=== PATIENT | female | born 1960 | race Caucasian/White ===

== ENCOUNTER 2017-01-24 21:47 | Observation (INO) | payer OTHER ==
[~2017-01-24] VITALS: Ht 157.5 cm; Wt 58.5 kg
[~2017-01-24 21:47] MED LIST: BIOTCAP PO; CETI10 PO; CHOL1CAP14 PO; CINN500C7 PO; CREON24 PO; EVENCAP2 PO; FOLI400T30 PO; GLUCTAB PO; LUTE6TAB PO; MIRA33502 PO; MULT1TAB PO; PREC50TA PO; SM A81CH CHEW; THYR15 PO; VITA-83 PO; VITA10002 PO; VITATAB11 PO; [UNRECOGNIZED DRUG - OTHER] PO
[2017-01-24 21:56] VITALS: BP 200/92; PULSE 89; RESP 20; TEMP 98.4; O2SAT 98
[2017-01-24] MEDS ORDERED: SODIUM CHLORIDE 0.9% FLUSH 10 ML FLUSH IVF PRN (23:15)
[2017-01-24 23:19] VITALS: BP 179/89; PULSE 78; RESP 16; O2SAT 95
--- NOTE | 2017-01-24 23:36 | RADRPT ---
EXAM DATE/TIME: 01/24/2017 23:15 [place] COMPARISON: No previous studies available for comparison. INDICATIONS : Chest pain. MEDICAL HISTORY : None. SURGICAL HISTORY : None. ENCOUNTER: Initial ACUITY: 1 day PAIN SCORE: 4/10 LOCATION: Bilateral chest FINDINGS: Trace consolidation seen left lung base, probably atelectasis. Right lung is clear. No effusion or pn eumothorax. Normal heart size. CONCLUSION: Very mild left base consolidation. Yogi Wilson MD on January 24, 2017 at 23:34 Board Certified Radiologist. This report was verified electronically.
[2017-01-24 23:42] LABS: AUTOMATED NEUTROPHIL # 6.7 TH/MM3 (1.8-7.7); BASOPHIL % 0.4 % (0.0-2.0); EOSINOPHIL # 0.1 TH/MM3 (0-0.4); EOSINOPHIL % 0.5 % (0.0-4.0); HEMATOCRIT 41.6 % (35.0-46.0); HEMO FLAGS DIFF FINAL; LYMPH % 22.3 % (9.0-44.0); LYMPHOCYTE # 2.3 TH/MM3 (1.0-4.8); MEAN CELL VOLUME 91.6 FL (80.0-100.0); MEAN CORPUSCULAR HEMOGLOBIN 30.2 PG (27.0-34.0); MONO % 11.6 % (0.0-8.0); NEUT % 65.2 % (16.0-70.0); PLATELET COUNT 254 TH/MM3 (150-450); RED BLOOD COUNT 4.55 MIL/MM3 (4.00-5.30); RED CELL DISTRIBUTION WIDTH 12.6 % (11.6-17.2); WHITE BLOOD COUNT 10.3 TH/MM3 (4.0-11.0)
[2017-01-24 23:50] LABS: CHLORIDE 104 MEQ/L (98-107); POTASSIUM 3.4 MEQ/L (3.5-5.1); SODIUM (NA) 138 MEQ/L (136-145)
[2017-01-24 23:54] LABS: ANION GAP 7 MEQ/L (5-15); BICARBONATE 27.3 MEQ/L (21.0-32.0); BLOOD UREA NITROGEN 24 MG/DL (7-18); MAGNESIUM 2.4 MG/DL (1.5-2.5)
--- NOTE | 2017-01-24 23:54 | PD ---
HPI Chief Complaint: Chest Pain Time Seen by Provider: 23:13 Travel History International Travel<30 days: No Contact w/Intl Traveler<30days: No Traveled to known affect area: No History of Present Illness HPI Patient is a 56-year-old female presents emergency department for evaluation of multiple complaints. Her chief complaint tonight is actually chest pain. Patient relates a history that 10 days ago she fell states that she fell forward landing on outstretched hands and hurt her tailbone and back as well as bilateral hips. She states the pain initially got better and then got worse and is wondering if she has a little chip fracture in her hips. 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 Patient does have a history of diabetes high blood pressure and high cholesterol gastroparesis. She states that her father had of a heart attack. She states the pain is not better after rest. She has not had an aspirin today. She states that she does not have any heart disease that she knows ago but was stress tested approximate 7 years ago. She states the pain was sharp radiation as above, so she is sign symptoms as above, relieved with rest. PFSH Past Medical History Cancer: No Cardiovascular Problems: No High Cholesterol: Yes Diabetes: Yes Patient Takes Glucophage: Yes (01/24/17 at 1200) Diminished Hearing: No Endocrine: No Gout: Yes Genitourinary: Yes (STRESS INCONTINENCE) Hepatitis: No Hiatal Hernia: Yes Hypertension: Yes (NO MEDS) Immune Disorder: No Musculoskeletal: Yes (OSTEOPENIA) Neurologic: No Psychiatric: No Respiratory: Yes (ASTHMA, ALLERGIES) Thyroid Disease: Yes (GOITER) Tetanus Vaccination: Unknown ?: Unknown : 0 Para: 0 Past Surgical History Abdominal Surgery: Yes (CHOLY) Body Medical Devices: NONE Cardiac Surgery: No Cholecystectomy: Yes Ear Surgery: No Endocrine Surgery: No Eye Surgery: No Genitourinary Surgery: Yes Gynecologic Surgery: Yes (LASER FOR PRECANCEROUS CELLS) Oral Surgery: Yes (WISDOM TEETH) Thoracic Surgery: Yes (BREAST IMPLANTS) Other Surgery: Yes (BREAST IMPLANTS, ATYPICAL BACK AND CHEST, NEVUS W/MILD TO MODERATE ATYPIA) Social History Alcohol Use: No Tobacco Use: No Substance Use: No Allergies-Medications (Allergen,Severity, Reaction): Coded Allergies: Sulfa (Sulfonamide Antibiotics) (Unverified Allergy, Severe, RESPIRATORY, HIVES, 01/24/17) amoxicillin (Unverified Allergy, Severe, HIVES, 01/24/17) betamethasone (Unverified Allergy, Severe, ANAPHYLAXIS, 01/24/17) bethanechol (Unverified Allergy, Severe, hives, 01/24/17) cephalexin (Unverified Allergy, Severe, HIVES, 01/24/17) norma (Unverified Allergy, Severe, ANAPHYLAXIS, 01/24/17) pecan nut (Unverified Allergy, Severe, UNKNOWN, 01/24/17) penicillin G (Unverified Allergy, Severe, HIVES, 01/24/17) sulfamethoxazole (Unverified Allergy, Severe, HIVES, 01/24/17) trimethoprim (Unverified Allergy, Severe, HIVES, 01/24/17) cat dander (Unverified Allergy, Intermediate, RESPIRATORY PROBLEMS, ) mold (Unverified Allergy, Intermediate, RESPIRATORY PROBLEMS, 01/24/17) pesticide (Unverified Allergy, Intermediate, ITCHING, RESP PROBLEMS, ) triamterene (Unverified Adverse Reaction, Severe, LIVER TEST ABNORMAL, 01/24/17) dog dander (Unverified Adverse Reaction, Intermediate, RESPIRATORY PROBLEMS, 01/24/17) grass pollen (Unverified Adverse Reaction, Intermediate, RESPIRATORY PROBLEMS, 01/24/17) storax (Unverified Adverse Reaction, Intermediate, RESPIRATORY PROBLEMS, 01/24/17) tree and shrub pollen (Unverified Adverse Reaction, Intermediate, RESPIRATORY PROBLEMS, 01/24/17) atorvastatin (Unverified Adverse Reaction, Unknown, UNKNOWN REACTION, 01/24) Reported Meds & Prescriptions Reported Meds & Active Scripts Active Reported [place] Thyroid (Thyroid) 30 Mg Tab 30 Mg PO TUE,THURS,FRI,SUN [place] Thyroid (Thyroid) 60 Mg Tab 60 Mg PO MON,WED,SAT Creon (Pancrelipase) 36,000-114,000-180,000 Units Cap 1 Cap PO TIDPC Metformin (Metformin HCl) 500 Mg Tab 500 Mg PO QID With a meal Acarbose 50 Mg Tab 50 Mg PO QID Review of Systems Except as stated in HPI: all other systems reviewed are Neg Physical Exam Narrative GENERAL: Well-developed well-nourished, no obvious distress. SKIN: Focused skin assessment warm/dry. HEAD: Atraumatic. Normocephalic. EYES: Pupils equal and round. No scleral icterus. No injection or drainage. ENT: No nasal bleeding or discharge. Mucous membranes pink and moist. NECK: Trachea midline. No JVD. CARDIOVASCULAR: Regular rate and rhythm. No murmur appreciated. No MGR, 2+ bilateral equal pulses in all 4 extremities, no edema. RESPIRATORY: No accessory muscle use. Trace right basilar rales otherwise clear.. Breath sounds equal bilaterally. GASTROINTESTINAL: Abdomen soft, non-tender, nondistended. Hepatic and splenic margins not palpable. MUSCULOSKELETAL: No obvious deformities. No clubbing. No cyanosis. No edema. No midline CT or L-spine tenderness. Pelvis stable, nontender hips, NEUROLOGICAL: Awake and alert. No obvious cranial nerve deficits. Motor grossly within normal limits. Normal speech. PSYCHIATRIC: Appropriate mood and affect; insight and judgment normal. Data Data Last Documented VS Vital Signs Date Time Temp Pulse Resp B/P (MAP) Pulse Ox O2 Delivery O2 Flow Rate FiO2 01/25/17 01:01 74 18 159/89 (112) 97 Room Air 01/24/17 21:56 98.4 Orders Orders Ckmb (Isoenzyme) Profile (01/24/17 23:13) Complete Blood Count With Diff (01/24/17 23:13) Comprehensive Metabolic Panel (01/24/17 23:13) Magnesium (Mg) (01/24/17 23:13) Prothrombin Time / Inr (Pt) (01/24/17 23:13) Act Partial Throm Time (Ptt) (01/24/17 23:13) Troponin I (01/24/17 23:13) Chest, Single Ap (01/24/17 23:13) Ecg Monitoring (01/24/17 23:13) Iv Access Insert/Monitor (01/24/17 23:13) Oximetry (01/24/17 23:13) Oxygen Administration (01/24/17 23:13) Sodium Chloride 0.9% Flush (Ns Flush) (01/24/17 23:15) Azithromycin (Zithromax) (01/25/17 00:45) Labs Laboratory Tests Test 01/24/17 23:30 White Blood Count 10.3 TH/MM3 Red Blood Count 4.55 MIL/MM3 Hemoglobin 13.7 GM/DL Hematocrit 41.6 % Mean Corpuscular Volume 91.6 FL Mean Corpuscular Hemoglobin 30.2 PG Mean Corpuscular Hemoglobin Concent 33.0 % Red Cell Distribution Width 12.6 % Platelet Count 254 TH/MM3 Mean Platelet Volume 8.6 FL Neutrophils (%) (Auto) 65.2 % Lymphocytes (%) (Auto) 22.3 % Monocytes (%) (Auto) 11.6 % Eosinophils (%) (Auto) 0.5 % Basophils (%) (Auto) 0.4 % Neutrophils # (Auto) 6.7 TH/MM3 Lymphocytes # (Auto) 2.3 TH/MM3 Monocytes # (Auto) 1.2 TH/MM3 Eosinophils # (Auto) 0.1 TH/MM3 Basophils # (Auto) 0.0 TH/MM3 CBC Comment DIFF FINAL Differential Comment Prothrombin Time 10.2 SEC Prothromb Time International Ratio 0.9 RATIO Activated Partial Thromboplast Time 25.6 SEC Blood Urea Nitrogen 24 MG/DL Creatinine 0.59 MG/DL Random Glucose 114 MG/DL Total Protein 7.3 GM/DL Albumin 3.5 GM/DL Calcium Level 8.7 MG/DL Magnesium Level 2.4 MG/DL Alkaline Phosphatase 62 U/L Aspartate Amino Transf (AST/SGOT) 15 U/L Alanine Aminotransferase (ALT/SGPT) 19 U/L Total Bilirubin 0.3 MG/DL Sodium Level 138 MEQ/L Potassium Level 3.4 MEQ/L Chloride Level 104 MEQ/L Carbon Dioxide Level 27.3 MEQ/L Anion Gap 7 MEQ/L Estimat Glomerular Filtration Rate 106 ML/MIN Total Creatine Kinase 41 U/L Troponin I LESS THAN 0.02 NG/ML MDM Medical Decision Making Medical Screen Exam Complete: Yes Emergency Medical Condition: Yes Differential Diagnosis ACS, AMI, chest wall pain, posttraumatic pain, PE highly unlikely, pneumonia unlikely. Narrative Course Patient 56-year-old female diabetes high blood pressure and high cholesterol with family history of heart disease presents emergency Department with a history of fall 2 weeks ago followed by chest pain starting today. Initial workup including EKG troponin is reassuring. The patient was offered x-ray of her hips however given that her ambulatory status is unlikely that this will lead to any other management other than management of her symptoms. Initially she agreed to defer pelvic x-ray and then requested at the end of my initial visit, x-ray was ordered and when the x-ray tech arrived the patient had discussed with the x-ray tech radiation exposure and she then declined the x- ray. The patient has some typical description of her chest pain but certainly has a history that starts with a fall and then leads to her having chest pain. However she still does have significant risk factors for ACS and coronary artery disease. 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 She was offered observation status in the hospital and she is agreeable. Her heart score is 5. Her chest x-ray does show a "very mild right base consolidation". Doubt this is leading to her symptoms. She has not had any upper respiratory symptoms. We 'll cover with azithromycin for possible early pneumonia. Diagnosis Primary Impression: Chest pain Additional Impression: Infiltrate noted on imaging study Admitting Information Admitting Physician Requests: Observation Condition: Stable Marquez Reynoso MD Jan 24, 2017 23:54
[2017-01-24 23:57] LABS: ALT (GPT) 19 U/L (10-53); AST (GOT) 15 U/L (15-37); GLOMERULAR FILTRATION RATE 106 ML/MIN (>89)
[2017-01-24 23:59] LABS: TOTAL BILIRUBIN ADULT 0.3 MG/DL (0.2-1.0)
[2017-01-25] VITALS (11 sets, daily range): BP systolic 138–162; BP diastolic 66–107; PULSE 60–92; RESP 16–18; TEMP 97.2–98.1; O2SAT 96–100
[2017-01-25] LABS: ALKALINE PHOSPHATASE 62 U/L (45-117)
[2017-01-25 00:06] LABS: CREATINE KINASE 41 U/L (26-192)
[2017-01-25] MEDS ORDERED: ACAR50TA PO (00:08)
[2017-01-25] MEDS ORDERED: PANC3600 PO (00:08)
[2017-01-25] MEDS ORDERED: METF500T PO (00:08)
[2017-01-25] MEDS ORDERED: ARMO30TA PO (00:08)
[2017-01-25] MEDS ORDERED: ARMO60TA PO (00:08)
[2017-01-25 00:21] LABS: APTT (PATIENT) 25.6 SEC (24.3-30.1); INTERNATIONAL NORMALIZED RATIO 0.9 RATIO; PROTHROMBIN TIME - PATIENT 10.2 SEC (9.8-11.6)
[2017-01-25] MEDS ORDERED: AZITHROMYCIN 250 MG TAB PO ONE (00:45)
[2017-01-25] MEDS ORDERED: IOHEXOL 350 MG/ML 100 ML BTL (for Cath Lab) OTHER ONE (01:08)
[2017-01-25] MEDS ORDERED: NALOXONE HCL 0.4 MG/ML AMP IV PUSH PRN (01:15)
[2017-01-25] MEDS ORDERED: SODIUM CHLORIDE 0.9% FLUSH 10 ML FLUSH IV FLUSH PRN (01:15)
[2017-01-25 07:01] LABS: CREATINE KINASE 30 U/L (26-192)
[2017-01-25] MEDS: SODIUM CHLORIDE 0.9% FLUSH 10 ML FLUSH IV FLUSH SCH ×2 (09:25→21:30)
--- NOTE | 2017-01-25 09:55 | EKG ---
Date Performed: 01/25/2017 Time Performed: 05:49:35 PTAGE: 56 years EKG: Sinus rhythm NORMAL ECG PREVIOUS TRACING : 04/03/2015 14.37 DOCTOR: Syd Alarcon Interpretating Date/Time 01/25/2017 09:53:40
--- NOTE | 2017-01-25 10:11 | EKG ---
Date Performed: 01/24/2017 Time Performed: 22:01:10 PTAGE: 56 years EKG: Sinus rhythm POSSIBLE LEFT ATRIAL ENLARGEMENT LOW QRS VOLTAGE IN PRECORDIAL LEADS BORDERLINE ECG NO PREVIOUS TRACING DOCTOR: Syd Alarcon Interpretating Date/Time 01/25/2017 10:10:38
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
[2017-01-25] MEDS ORDERED: ONDANSETRON HCL 4 MG/2 ML VIAL IV PUSH PRN (10:30)
[2017-01-25] MEDS ORDERED: ASPIRIN 325 MG TAB PO SCH (10:30)
[2017-01-25] MEDS ORDERED: KETOROLAC TROMETHAMINE 30 MG/ML (IVP) VIAL IV PUSH ONE (10:30)
[2017-01-25] MEDS ORDERED: NITROGLYCERIN 0.4 MG SL 25 TABS/BTL SL PRN (10:30)
[2017-01-25] MEDS ORDERED: THYROID 60 MG TAB PO SCH (11:00)
[2017-01-25] MEDS: FAMOTIDINE 20 MG TAB PO SCH ×2 (11:33→21:30)
[2017-01-25] MEDS ORDERED: HEPARIN SODIUM - SQ 10,000 UNITS/ML VIAL SQ SCH (11:45)
[2017-01-25] MEDS ORDERED: REGADENOSON INJ 0.4 MG/5 ML SYR IV ONE (11:48)
[2017-01-25] MEDS ORDERED: cloNIDine HCL 0.1 MG TAB PO PRN (12:15)
[2017-01-25] MEDS ORDERED: DEXTROSE 50% IN WATER 50 ML VIAL(D50) IV PUSH PRN (12:30)
[2017-01-25] MEDS ORDERED: GLUCAGON 1 MG/ML VIAL OTHER PRN (12:30)
--- NOTE | 2017-01-25 12:58 | RADRPT ---
EXAM DATE/TIME: 01/25/2017 11:42 [facility] COMPARISON: No previous studies available for comparison. INDICATIONS : Midsternal chest pain radiating to right shoulder with nausea and dyspnea. Angina. DOSE: 25.4 mCi Tc99m Myoview at stress. 8.5 mCi Tc99m Myoview at rest. 0.4 mg Lexiscan STRESS SYMPTOMS: Nausea and dyspnea. EJECTION FRACTION: 70% MEDICAL HISTORY : Hypertension. Diabetes mellitus type 2. Asthma. SURGICAL HISTORY : Cholecystectomy. Breast implants. ENCOUNTER: Initial ACUITY: 2 days PAIN SCALE: 6/10 LOCATION: Midsternal chest TECHNIQUE: The patient underwent pharmacologic stress with infusion of prescribed dose. Continuous ECG tracing was monitored during stress. Gated SPECT imaging was performed after stress and conventional SPECT i maging was performed at rest. The examination was performed on a SPECT/CT scanner, both attenuation and non-corrected datasets were reviewed. FINDINGS: DISTRIBUTION: The maximum perfused segment at stress is in the inferior wall. PERFUSION STUDY: The pattern of perfusion at stress is within normal limits, with the exception of small area of mild reversibility of the anterior wall towards the apex. GATED STUDY: There is intact wall motion and thickening without hypokinetic or dyskinetic segments. CONCLUSION: 1. Small area of mild reversibility of the anterior wall towards the apex suggesting ischemia. 2. Normal ejection fraction.. RISK CATEGORY: Low (<1% Annual Mortality Rate) Pastor Patterson MD on January 25, 2017 at 12:53 Board Certified Radiologist. This report was verified electronically.
--- NOTE | 2017-01-25 15:13 | RADRPT ---
EXAM DATE/TIME: 01/25/2017 13:30 [facility] COMPARISON: No previous studies available for comparison. INDICATIONS : Left calf and ankle swelling. MEDICAL HISTORY : Hypercholesterolemia. Hypertension. Goiter. Gastroparesis. Hiatal hernia. Diabetes. SURGICAL HISTORY : Cholecystectomy. Breast augmentation. Gynecologic surgery, laser for precancerous cells. Orthopedi c surgery, hammer toe. ENCOUNTER: Initial ACUITY: 1 day PAIN SCORE: 0/10 LOCATION: Left leg. TECHNIQUE: Venous ultrasound of the leg was performed from the inguinal ligament to the proximal calf. Real-bryon e, color Doppler and spectral tracing, compression and augmentation techniques were used. FINDINGS: There is normal compressibility of the deep venous system from the inguinal region to the proximal ca lf. No echogenic clot is seen in the lumen of the common femoral, femoral, popliteal, and posterior tibial veins. There is a normal response of the venous system to proximal and distal augmentation an d respiration. CONCLUSION: 1. No sonographic evidence for left lower extremity DVT. Shemar Valentin MD on January 25, 2017 at 15:11 Board Certified Radiologist. This report was verified electronically.
[2017-01-25] MEDS ORDERED: THYROID 30 MG TAB PO SCH (16:00)
[2017-01-25] MEDS: INSULIN ASPART SUPPLEMENTAL SCALE SQ SCH ×2 (16:36→21:00)
[2017-01-25] MEDS ORDERED: MIDAZOLAM HCL 5 MG/5 ML VIAL ONE ×2 (18:47→19:27)
[2017-01-25] MEDS ORDERED: HEPARIN-NS/PF INJ 1,000 ML ONE (18:47)
[2017-01-25] MEDS ORDERED: SODIUM CHLORID 0.9% 500 ML INJ 500 ML ONE (18:49)
[2017-01-25] MEDS ORDERED: MIDAZOLAM HCL 5 MG/5 ML VIAL IV ONE ×9 (18:51→20:06)
[2017-01-25] MEDS ORDERED: HEPARIN SODIUM - IV 10,000 UNITS/10 ML VIAL ONE (19:22)
[2017-01-25] MEDS ORDERED: LIDOCAINE HCL 1% PF 30 ML VIAL ONE (19:27)
[2017-01-25] MEDS ORDERED: CANGRELOR TETRASODIUM 50,000 MCG VIAL ONE ×3 (19:33)
[2017-01-25] MEDS ORDERED: STERILE WATER FOR INJECTION 10 ML VIAL ONE ×2 (19:33→19:34)
[2017-01-25] MEDS ORDERED: CANGRELOR 50,000 MCG/250 ML NS IV SCH ×2 (19:38)
[2017-01-25] MEDS ORDERED: TICAGRELOR 90 MG TAB PO ONE ×2 (20:05→20:18)
[2017-01-25] MEDS ORDERED: MIDAZOLAM HCL 2 MG/2 ML VIAL ONE (20:06)
--- NOTE | 2017-01-25 20:19 | CATHPROC ---
[facility] HIS Report Study Information Study Number Admission Scheduled Start Study Start [id number] Jan 25 2017 1:07AM 01/25/2017 Jan 25 2017 6:12PM [facility] Cardiac Catheterization Admit Source Facility Department Emergency department [facility] Physician and Clinical Staff Initial Russell Butterfield Collateral Clerk Eli Stratton,BORIS Collateral Clerk Barbra Larry RN Other cathlab, cathlab Recorder Vitaliy Negron RCIS(BS) Scrub Usman Daley RT(R) Procedures Performed Procedure Location (Site) Vessel Name Angiogram LV LV Ventricle Coronary Angiograms LCA Left Coronary Coronary Angiograms RCA Right Coronary Drug Eluting Inflatio RCA Mid Right Coronary L Heart Cath PTCA RCA Mid Right Coronary Wire insertion Fem Art (right) Femoral Art Equipment Time Grounds Person Description Size Mfg Part Number Used/Scraped WIRE, BALANCE MIDDLEWEIGHT [id number] 19:53 [employer] 190CM Used 190CM (MAGEN) *[id number] TRANSDUCER, TRUWAVE [id number] 18:27 SAWYER ALONZO * Used W/STOCKCOCK *[id number] BALLOON, 3.75 [place] [id number] 19:48 [employer] 3.75 12MM Used QUANTUM APEX MR *[id number] *[id number] 670-110-00 *[id number] [id number] *[id number] [id number] *[id number] [id number] *[id number] *[id number] 20:08 DAIG/ST. RIAN MEDICAL ANGIOSEAL, FR6 VIP FR 6 Used *[id number] 18:27 MEDLINE INDUSTRIES PACK, CCL CUSTOM * Used *[id number] 18:27 MEDLINE PACER PEN, SKIN DUAL W/ RULER * Used *[id number] 19:36 MEDTRONIC BALLOON, 2.0 X 12MM EUPHORA 12MM Used *[id number] BALLOON, 3.5 X 12MM NC [id number] 19:56 MEDTRONIC 12MM Used EUPHORA *[id number] 19:42 MEDTRONIC STENT, 3.5 18MM ALTON 3.5 18MM Used *[id number] 19:24 Entelos MEDICAL 30 ADY INDEFLATOR Used *[id number] 19:27 [employer]el[employer] MEDICAL SHEATH, FR4.5 PRELUDE 11CM FR 4.5 Used [id number] 19:23 MERIT MEDICAL SHEATH, FR6.5 PRELUDE 11CM FR 6.5 038ACT Used *[id number] 18:27 [employer]elos MEDICAL WIRE, 3MMJ .035 180CM 180CM Used *[id number] PROBE COVER, STERILE [id number] 18:27 [employer]K [employer] * Used ULTRASOUND W/ GEL *[id number] PROBE COVER, STERILE [id number] 19:28 [employer]ICAL * Used ULTRASOUND W/ GEL *[id number] 18:27 NAMIC MANIFOLD, 4 PORT * Used *[id number] 18:27 NAMIC TUBING, HIGH PRESSURE 48" 48" Used *[id number] 18:27 NYCOMED OMNIPAQUE, 350 MG, 150ML 150ML [id number] Used 19:11 NYCOMED OMNIPAQUE, 350 MG, 50ML 50ML [id number] Used [id number] 18:27 PALA MEDICAL BLANKET,WARM AIR CCL * Used *[id number] 18:27 TERUMO MEDICAL SHEATH, FR5 TERUMO (10CM) FR 5 Used *[id number] Equipment Model, Serial, Lot Number and Expiration Data Description Model Number Serial Number Lot Number Expiration Date STENT, 3.5 18MM ALTON [id number] 10-26-2018 History: Current Medications Medication Dosage/Unit Route Frequency Last Date/Time Taken ASA History: Allergies Allergy Reaction Sulfa (Sulfonamide Antibiotics) RESPIRATORY, HIVES betamethasone ANAPHYLAXIS triamterene LIVER TEST ABNORMAL cephalexin HIVES sulfamethoxazole HIVES trimethoprim HIVES amoxicillin HIVES bethanechol hives storax RESPIRATORY PROBLEMS penicillin G HIVES atorvastatin UNKNOWN REACTION norma ANAPHYLAXIS pecan nut UNKNOWN grass pollen RESPIRATORY PROBLEMS tree and shrub pollen RESPIRATORY PROBLEMS cat dander RESPIRATORY PROBLEMS dog dander RESPIRATORY PROBLEMS mold RESPIRATORY PROBLEMS pesticide ITCHING, RESP PROBLEMS History: Risk Factors Family History of Hypertension Dyslipidemia Previous MD Previous Heart Failure Premature CAD Yes Yes Yes No No Prior Valve Prior PCI Prior CABG Surgery No No No Cerebrovascular Peripheral Artery Chronic Lung On Dialysis Diabetes Diabetes Therapy Disease Disease Disease No No No Yes Yes Oral History: Symptoms/Diagnosis Selection Items Chest pain History: Stress Tests Stress or Imaging Studies Performed Yes Standard Exercise Stress Test No Stress Echo No Stress Test SPECT Stress Test SPECT Result Stress Test SPECT Ischemia Risk/Extent Yes Positive Intermediate Stress Test CMR No Cardiac CTA Coronary Calcium Score No No History: Other Disease Selection Items HTN History: Other Current Smoker No Labs Hgb (g/dl) Hct (%) WBC (l/cumm) Platelets (thousands) 11.60-17.00 35.00-51.00 4.00-11.00 150.00-450.00 13.7 41.6 10.3 254 Glucose (mg/dl) BUN (mg/dl) Creatinine (mg/dl) BUN:Creatinine (1:x) 74.00-106.00 7.00-18.00 0.50-1.30 10.00-20.00 114 24 0.5 48 Na (meq/l) K (meq/l) 136.00-145.00 3.50-5.10 138 3.6 INR (PTT:PT) 0.90-1.10 0.9 Troponin I (ng/ml) CPK (u/l) CPK-MB (ng/ML) 0.02-0.05 26.00-308.00 0.50-3.60 0.02 30 Not Drawn Medication Medication Total Dose (Bolus/Oral) Medication Total Dosage/Unit 1% XYLOCAINE 40 mL BRILLINTA 180 mg FENTANYL 100 mcg HEPARIN 5000 units NTG (IC) 600 mcg VERSED 4 mg Medications (Bolus/Oral) Medication Time Given Dosage/Unit Administered By Reason VERSED 01/25/2017 6:51:45 PM 2 mg Hesher, Eli 2 mg VERSED given in lab by Eli Stratton RN in Left Antecubital via Peripheral IV. Ordered by Russell Granados. FENTANYL 01/25/2017 6:55:12 PM 25 mcg Hesher, Eli 25 mcg FENTANYL given in lab by Eli Stratton RN in Left Antecubital via Peripheral IV. Ordered by Russell Hale. VERSED 01/25/2017 6:58:00 PM 1 mg Hesher, Eli 1 mg VERSED given in lab by Eli Stratton RN in Left Antecubital via Peripheral IV. Ordered by Russell Granados. FENTANYL 01/25/2017 6:59:00 PM 50 mcg Hesher, Eli 50 mcg FENTANYL given in lab by Eli Stratton RN in Left Antecubital via Peripheral IV. Ordered by Russell Hale. FENTANYL 01/25/2017 7:06:22 PM 25 mcg Eli Stratton 25 mcg FENTANYL given in lab by Eli Stratton RN in Left Antecubital via Peripheral IV. Ordered by Russell Hale. 1% XYLOCAINE 01/25/2017 7:06:47 PM 20 mL Russell Hale 20 mL 1% XYLOCAINE given in lab by Russell Hale in Right Groin via Subcutaneous. VERSED 01/25/2017 7:07:11 PM 1 mg Eli Stratton 1 mg VERSED given in lab by Eli Stratton RN in Left Antecubital via Peripheral IV. Ordered by Russell Granados. HEPARIN 01/25/2017 7:23:45 PM 5000 units Eli Stratton 5000 units HEPARIN given in lab by Eli Stratton RN in Left Antecubital via Peripheral IV. Ordered by Russell Hale. 1% XYLOCAINE 01/25/2017 7:27:38 PM 20 mL Russell Hale 20 mL 1% XYLOCAINE given in lab by Russell Hale in Left Groin via Subcutaneous. NTG (IC) 01/25/2017 7:34:18 PM 100 mcg Russell Hale 100 mcg NTG (IC) given in lab by Russell Hale via Intra-coronary. NTG (IC) 01/25/2017 7:40:53 PM 100 mcg Russell Hale 100 mcg NTG (IC) given in lab by Russell Hale via Intra-coronary. NTG (IC) 01/25/2017 7:45:41 PM 200 mcg Russell Hale 200 mcg NTG (IC) given in lab by Russell Hale via Intra-coronary. NTG (IC) 01/25/2017 7:57:13 PM 200 mcg Russell Hale 200 mcg NTG (IC) given in lab by Russell Hale via Intra-coronary. BRILLINTA 01/25/2017 8:17:14 PM 180 mg Eli Stratton 180 mg BRILLINTA given in lab by Eli Stratton RN in Per mouth via Oral. Ordered by Russell Hale . Medication (Drip) Medication Time Given Dosage/Unit Concentration/Unit Diluent (ml) Solution IV Solutions 01/25/2017 6:41:44 PM 0 mL (IV) 500 NaCl .9 Patient arrived on IV Solutions given by Usman Daley, RT(R) in Left Antecubital via Peripheral IV. Pump/Drip Flow = 20 ml/hr using NaCl .9. Ordered by Russell Hale. KENGREAL BOLUS 01/25/2017 7:36:37 PM 8.4 mL 8.4 mL KENGREAL BOLUS given in lab by Eli Stratton, BORIS in Left Forearm via Peripheral IV. Ordered b y Russell Hale. KENGREAL DRIP 01/25/2017 7:40:58 PM 4 mcg/kg/min 50 mg 250 NaCl .9 4 mcg/kg/min KENGREAL DRIP given in lab by Eli Stratton RN in Left Antecubital via Peripheral IV. Pump/Drip Flow = 67.56 ml/hr using NaCl .9 with a concentration of 50 mg in 250 ml. Ordered by Russell Hale. Initial Case Assessment Cardiovascular HR Rhythm NIBP Chest Pain 78 nsr 175/89 0 Edema Present Skin color Skin None Normal Warm Dry Circulatory - Right Pulses Dorsalis Pedis Femoral 3 3 Scale (0,1,2,3,4,d) Circulatory - Left Pulses Dorsalis Pedis Femoral 3 3 Scale (0,1,2,3,4,d) Neurological State Oriented to time-place- Alert Moves all extremities person Respiration - General Respiration Rate SpO2 (%) (B/min) 15 98 Chronological Log Time Study Chronological Log 18:41:35 Patient arrived via Bed. 18:41:35 Patient Name, D.O.B, / Armband Verified By R.N. 18:41:36 Consent signed by the physician and the patient and verified by the [facility] staff. 18:41:36 Pre-op and post- op instructions given; patient acknowledges understanding of instruction s. 18:41:37 Verbal Stimulation=2 Physical Stimulation=2 Airway=2 Respiration=2 TOTAL=8. (0=absent, 1= limited, 2=present) 18:41:38 Presedation assessment performed by [facility] RN. 18:41:39 Immediate Presedation assesment performed by physician. 18:41:39 Patient has been NPO for More than 6Hrs. 18:41:40 Skin Breakdown- none per patient 18:41:41 Patient Warmer Placed on the Table. 18:41:42 Jose Prominences Protected 18:41:43 IV Warmer Connected To Patient. 18:41:44 A # 20 IV was noted in the Antecubital (left). Grade = 0 Patient arrived on IV Solutions given by Usman Daley RT(R) in Left Antecubital via Periphera l IV. Pump/Drip Flow = 20 18:41:44 ml/hr using NaCl .9. Ordered by Russell Hale. 18:41:45 History and physical on the chart or being dictated. Vitals capture started with the following parameters, Patient=Adult, Interval=3 min, Initial Pr qcwdfe=316 mmHg, 18:46:06 Deflation Rate=5 mmHg, Cuff placed on Left Ankle 18:46:44 HR=21 bpm, XYMM=617/89 mmhg, SpO2=98.0 %, Resp=14 B/min, Pain=0, Jenna=10, Negrete=2 Assessment: Initial Case, HR=78 BPM, Rhythm=nsr, PZXZ=678/89 mmhg, Chest Pain=0, Edema=None, Co jane=Normal, Skin = Warm, Dry Right Pulses: Chris Ped=3, Femoral=3 18:47:02 Left Pulses: Chris Ped=3, Femoral=3 Neurological: State=Alert, Ox3, COOK Respiration: Resp=15 B/min, SpO2=98 % 18:47:36 Reference ECG taken 18:49:45 HR=80 bpm, CKUZ=788/108 mmhg, SpO2=99.0 %, Resp=17 B/min, Pain=0, Jenna=10, Negrete=2 18:51:45 2 mg VERSED given in lab by Eli Stratton, BORIS in Left Antecubital via Peripheral IV. Order ed by Russell Hale. 18:52:47 HR=80 bpm, OYYO=433/95 mmhg, SpO2=99.0 %, Resp=14 B/min 18:53:35 Bilateral groins prepped with 2% chlorhexidine, and draped after a 3 minute waiting time. 18:54:33 paged 18:54:33 MD responded 18:55:12 25 mcg FENTANYL given in lab by Eli Stratton RN in Left Antecubital via Peripheral IV. O rdered by Russell Hale. 18:55:49 HR=74 bpm, RZPU=510/79 mmhg, SpO2=99.0 %, Resp=11 B/min, Pain=0, Jenna=10, Negrete=2 18:58:00 1 mg VERSED given in lab by Eli Stratton, RN in Left Antecubital via Peripheral IV. Order ed by Russell Hale. 18:58:35 Pressure channel 1 zeroed. 18:58:39 HR=79 bpm, WOCC=936/86 mmhg, SpO2=98.0 %, Resp=13 B/min 18:59:00 50 mcg FENTANYL given in lab by Eli Stratton, BORIS in Left Antecubital via Peripheral IV. O rdered by Russell Hale. 18:59:17 MD arrived. 18:59:53 Contrast Scanned 18:59:53 Immediate Presedation assesment performed by physician. 19:01:43 HR=78 bpm, WHJX=803/85 mmhg, SpO2=98.0 %, Resp=10 B/min, Pain=0, Jenna=10, Negrete=2 Time Out. Correct patient, correct procedure, correct physician, power injector loaded with con trast with surgical team 19:05:15 present. Time Out Concurred by MD and individual staff in procedure. 19:05:19 HR=79 bpm, HRSX=459/76 mmhg, SpO2=98.0 %, Resp=16 B/min, Pain=0, Jenna=10, Negrete=2 19:05:29 Case Start 19:05:31 Verbal Stimulation=2 Physical Stimulation=2 Airway=2 Respiration=2 TOTAL=8. (0=absent, 1=li mited, 2=present) 19:06:22 25 mcg FENTANYL given in lab by Eli Stratton, BORIS in Left Antecubital via Peripheral IV. O rdered by Russell Hale. 19:06:47 20 mL 1% XYLOCAINE given in lab by Russell Hale in Right Groin via Subcutaneous. 19:07:11 1 mg VERSED given in lab by Eli Stratton, RN in Left Antecubital via Peripheral IV. Order ed by Russell Hale. 19:07:44 HR=77 bpm, PZWO=977/73 mmhg, SpO2=98.0 %, Resp=9 B/min, Pain=0, Jenna=10, Negrete=2 19:08:00 Access site was Right Femoral Artery. 19:08:03 A SHEATH, FR5 TERUMO (10CM) FR 5 was advanced into the Fem Art (right) using the Percutaneo us technique. A PIGTAIL ANG. INFINITI CATHETER FR 5 was advanced over a wire. OMNIPAQUE, 350 MG, 150ML 150ML was used 19:08:07 for injections. Recorded Pressure: LV, HR=78, Condition=Condition 1 19:10:19 (Left Ventricle) LV 130/5/11 19:10:44 HR=71 bpm, DGWE=135/68 mmhg, SpO2=98.0 %, Resp=9 B/min, Pain=0, Jenna=10, Negrete=2 19:11:22 The LV was injected at 10 cc/sec for a total of 30. OMNIPAQUE, 350 MG, 50ML 50ML used. Recorded Pressure: LV, Ao, HR=76, Condition=Condition 1 19:11:56 (Left Ventricle) LV 124/5/10, (Aorta) Ao 129/60/91 19:12:07 Catheter was removed A JL 4.0 INFINITI CATHETER FR 5 was advanced over a wire. OMNIPAQUE, 350 MG, 150ML 150ML was us ed for 19:12:07 injections. Recorded Pressure: Ao, HR=84, Condition=Condition 1 19:13:25 (Aorta) Ao 135/72/101 19:13:32 The LCA was injected and visualized at various angles. OMNIPAQUE, 350 MG, 50ML 50ML used. 19:13:44 HR=82 bpm, QTMU=484/76 mmhg, SpO2=98.0 %, Resp=11 B/min, Pain=0, Jenna=10, Negrete=2 19:16:43 HR=94 bpm, XJLP=827/85 mmhg, SpO2=99.0 %, Resp=11 B/min, Pain=0, Jenna=10, Negreet=2 19:18:27 Catheter was removed A AR MOD INFINITI CATHETER FR 5 was advanced over a wire. OMNIPAQUE, 350 MG, 150ML 150ML was us ed for 19:18:28 injections. 19:19: The RCA was injected and visualized at various angles. OMNIPAQUE, 350 MG, 150ML 150ML used . 19:19:45 HR=97 bpm, DUMO=715/85 mmhg, BaL0=757.0 %, Resp=13 B/min, Pain=0, Jenna=10, Negrete=2 19:20:07 The RCA was injected and visualized at various angles. OMNIPAQUE, 350 MG, 150ML 150ML used . 19:22:47 HR=87 bpm, EYFR=471/82 mmhg, SpO2=99.0 %, Resp=14 B/min, Pain=0, Jenna=10, Negrete=2 5000 units HEPARIN given in lab by Eli Stratton RN in Left Antecubital via Peripheral IV. Or dered by Geoffrey 19:23:45 Russell. 19:25:01 Catheter was removed A SHEATH, FR6.5 PRELUDE 11CM FR 6.5 was exchanged in the Fem Art (right). This was necessary in order to 19:25:04 accomodate a larger catheter. 19:25:45 TD=097 bpm, DKXP=117/88 mmhg, ZbD1=260.0 %, Resp=16 B/min, Pain=0, Jenna=10, Negrete=2 19:27:38 20 mL 1% XYLOCAINE given in lab by Russell Hale in Left Groin via Subcutaneous. 19:28:48 HR=81 bpm, CDIS=664/83 mmhg, KwP2=512.0 %, Resp=11 B/min, Pain=0, Jenna=10, Negrete=2 19:30:54 Access site was Left Femoral Artery. 19:30:56 A SHEATH, FR4.5 PRELUDE 11CM FR 4.5 was advanced into the Fem Art (left) using the Percutan eous technique. 19:31:30 Activated Clotting Time Drawn 19:31:50 HR=80 bpm, HPVO=631/69 mmhg, KoP9=516.0 %, Resp=16 B/min, Pain=0, Jenna=10, Negrete=2 19:32:16 A AR 1 GUIDE CATHETER FR 6 was advanced over a wire. OMNIPAQUE, 350 MG, 150ML 150ML was use d for injections. 19:34:18 100 mcg NTG (IC) given in lab by Russell Hale via Intra-coronary. 19:34:44 HR=84 bpm, CJVG=203/73 mmhg, SpO2=99.0 %, Resp=10 B/min, Pain=0, Jenna=10, Negrete=2 19:35:10 A WIRE, ATW MARKER 195CM 195CM was inserted via Fem Art (right). 19:35:12 Interventional wire has crossed the lesion A BALLOON, 2.0 X 12MM EUPHORA 12MM was inserted over WIRE, ATW MARKER 195CM 195CM via the Fem A rt 19:36:30 (right). 8.4 mL KENGREAL BOLUS given in lab by Eli Stratton, BORIS in Left Forearm via Peripheral IV. Ord ered by Geoffrey 19:36:37 Russell. A BALLOON, 2.0 X 12MM EUPHORA 12MM over a WIRE, ATW MARKER 195CM 195CM in the RCA Mid was infla ubaldo using 19:37:31 a 30 ADY INDEFLATOR at 16 ady for 30 sec. 19:37:44 ACT (Normal Range 90-180) = 275 19:38:23 HR=85 bpm, FCJG=231/86 mmhg, SpO2=97.0 %, Resp=11 B/min, Pain=0, Jenna=10, Negrete=2 19:39:33 Balloon Removed. 19:40:47 HR=86 bpm, BFUB=766/87 mmhg, SpO2=97.0 %, Resp=12 B/min, Pain=0, Jenna=10, Negrete=2 19:40:53 100 mcg NTG (IC) given in lab by Russell Hale via Intra-coronary. 4 mcg/kg/min KENGREAL DRIP given in lab by Eli Stratton, RN in Left Antecubital via Periphera l IV. Pump/Drip Flow 19:40:58 = 67.56 ml/hr using NaCl .9 with a concentration of 50 mg in 250 ml. Ordered by Russell Hale . A STENT, 3.5 18MM ALTON 3.5 18MM was advanced through a AR 1 GUIDE CATHETER FR 6 over a WIRE, AT W MARKER 19:41:16 195CM 195CM. A STENT, 3.5 18MM ALTON 3.5 18MM was deployed using a 30 ADY INDEFLATOR at 12 atmospheres for 20 seconds in 19:42:56 the RCA Mid. 19:43:45 HR=85 bpm, YIAK=233/80 mmhg, SpO2=97.0 %, Resp=11 B/min, Pain=0, Jenna=10, Negrete=2 19:44:02 Re-inflated the stent balloon in the RCA Mid to 14 ADY for 22 seconds. 19:44:36 Delivery device removed 19:45:41 200 mcg NTG (IC) given in lab by Russell Hale via Intra-coronary. 19:46:49 HR=89 bpm, DDRB=881/74 mmhg, SpO2=98.0 %, Resp=14 B/min, Pain=0, Jenna=10, Negrete=2 A BALLOON, 3.75 12MM NC QUANTUM APEX MR 3.75 12MM was inserted over WIRE, ATW MARKER 195CM 195C M via 19:48:26 the RCA Mid. 19:49:45 HR=80 bpm, WNRE=138/79 mmhg, SpO2=99.0 %, Resp=11 B/min, Pain=0, Jenna=10, Negrete=2 19:51:00 Lost wire positon 19:52:50 HR=80 bpm, AUXE=079/69 mmhg, SpO2=96.0 %, Resp=10 B/min, Pain=0, Jenna=10, Negrete=2 19:52:55 Balloon Removed. 19:52:59 Wire removed 19:53:05 Catheter was removed A 3DRC GUIDE CATHETER FR 6 was advanced over a wire. OMNIPAQUE, 350 MG, 150ML 150ML was used fo r 19:53:06 injections. 19:54:30 A WIRE, BALANCE MIDDLEWEIGHT 190CM (MAGEN) 190CM was inserted via Fem Art (right). 19:55:38 Interventional wire has crossed the lesion 19:55:48 HR=80 bpm, CCUL=470/84 mmhg, SpO2=96.0 %, Resp=11 B/min, Pain=0, Jenna=10, Negrete=2 A BALLOON, 3.5 X 12MM NC EUPHORA 12MM was inserted over WIRE, BALANCE MIDDLEWEIGHT 190CM (MAGEN) 19:55:52 190CM via the RCA Mid. 19:57:13 200 mcg NTG (IC) given in lab by Russell Hale via Intra-coronary. A BALLOON, 3.5 X 12MM NC EUPHORA 12MM over a WIRE, BALANCE MIDDLEWEIGHT 190CM (MAGEN) 190CM in t he 19:58:40 RCA Mid was inflated using a 30 ADY INDEFLATOR at 18 ady for 55 sec. 19:58:46 HR=86 bpm, MPUE=706/84 mmhg, SpO2=96.0 %, Resp=14 B/min, Pain=0, Jenna=10, Negrete=2 A BALLOON, 3.5 X 12MM NC EUPHORA 12MM over a WIRE, BALANCE MIDDLEWEIGHT 190CM (MAGEN) 190CM in t he 20:00:49 RCA Mid was inflated using a 30 ADY INDEFLATOR at 18 ady for 25 sec. 20:01:48 HR=73 bpm, NXYJ=758/78 mmhg, SpO2=97.0 %, Resp=14 B/min, Pain=0, Jenna=10, Negrete=2 20:01:52 Balloon Removed. 20:02:38 Wire removed 20:03:21 Catheter was removed 20:04:24 An injection in the Fem Art (right) was made through the SHEATH, FR4.5 PRELUDE 11CM FR 4.5. 20:04:48 HR=74 bpm, OZTH=844/74 mmhg, SpO2=99.0 %, Resp=12 B/min, Pain=0, Jenna=10, Negrete=2 20:05:14 ANGIOSEAL, FR6 VIP FR 6 placement in the Fem Art (right) 20:07:31 Case End 20:07:33 In the Fem Art (left) the SHEATH, FR4.5 PRELUDE 11CM FR 4.[address] by Usman Daley, RT(R). 20:07:40 Sterile dressing applied to site 20:07:41 No case complications noted. 20:07:41 Cine recording checked. 20:07:43 Bedside Report will be given. 20:07:44 Implantable Device card placed in patient's chart. 20:07:45 Contrast Scanned 20:07:45 Contrast Scanned 20:07:48 Verbal Stimulation=2 Physical Stimulation=2 Airway=2 Respiration=2 TOTAL=8. (0=absent, 1=l imited, 2=present) 20:07:49 HR=72 bpm, JDVV=411/82 mmhg, SpO2=99.0 %, Resp=11 B/min, Pain=0, Jenna=10, Negrete=2 20:07:54 A Left Heart Cath was performed. 20:11:28 HR=77 bpm, SEPR=072/84 mmhg, SpO2=98.0 %, Resp=11 B/min, Pain=0, Jenna=10, Negrete=2 20:15:50 Vitals capture stopped. 20:17:14 180 mg BRILLINTA given in lab by Eli Stratton, RN in Per mouth via Oral. Ordered by Russell Granados. 20:18:25 [facility] - Contrast Media Used In Study Contrast Total Opened (mL) Total Used (mL) Total Wasted (mL) Omnipaque 175 175 0 End Study - Maximum Contrast Load Max Contrast Load (mL) 563.2 End Study - Radiation Exposure Fluoro Time (minutes) 12.8 End Study - Patient Disposition Complications Transferred To Interventional Outcome No Telemetry Bed successful
[2017-01-25] MEDS ORDERED: SODIUM CHLOR 0.9% 1000 ML INJ 1,000 ML IV SCH (20:47)
[2017-01-25] MEDS ORDERED: ACETAMINOPHEN 325 MG TAB PO PRN (21:00)
[2017-01-25] MEDS ORDERED: PRAVASTATIN SOD 10 MG TAB PO SCH (21:00)
[2017-01-25] MEDS: METOPROLOL TARTRATE 25 MG TAB PO SCH (21:30)
--- NOTE | 2017-01-25 21:44 | MB ---
cc: RUSSELL HALE MD DATE OF CONSULTATION 01/25/17 HISTORY OF PRESENT ILLNESS Mrs. Fields is a 56-year-old white female with history of hypertension, dyslipidemia and type 2 diabetes mellitus. She has developed right-sided chest pain radiating to the right arm and was seen at [facility]. She underwent nuclear marker perfusion study which revealed anteroapical reversible defect consistent with ischemia. The patient was transferred to [facility] for further cardiac evaluation. PAST MEDICAL HISTORY Positive for type 2 diabetes mellitus, hypertension, dyslipidemia, thyroid disease, thyroid nodules, hiatal hernia, gout, asthma, ___ on the right lung by CT at [facility]. Osteopenia, history of foot surgery, breast augmentation. Surgery for precancerous cervix, cholecystectomy, wisdom tooth removal. MEDICATIONS Include: 1. Acarbose. 2. Metformin. 3. Creon. 4. [place] Thyroid. ALLERGIES ATORVASTATIN, TRIAMTERINE, TRIMETHOPRIM, SULFAMETHOXAZOLE, PENICILLIN G, CEPHALEXIN, BETHANECHOL, DEXAMETHASONE, AMOXICILLIN, SULFA. SOCIAL HISTORY The patient does not smoke. She does not drink alcohol. She is . FAMILY HISTORY Positive for heart disease in her father. REVIEW OF SYSTEMS Otherwise negative. PHYSICAL EXAMINATION VITAL SIGNS: Blood pressure 162/92, pulse 92 and regular. HEENT: Negative. NECK: 2+ carotid upstrokes. No bruits. LUNGS: Clear. HEART: Regular with no murmur, gallop or rub. ABDOMEN: Soft. No bruits. EXTREMITIES: Without edema. 2+ distal pulses. NEUROLOGIC: Exam grossly intact. CARDIOLOGY STUDIES EKG was reviewed and showed normal sinus rhythm with normal axis and intervals. LABORATORY DATA Hemoglobin 13.7, potassium 3.6, creatinine 0.6. Troponin negative x2. CK 41 and 30. AST, ALT normal. DIAGNOSIS 1. Unstable angina. 2. Abnormal nuclear marker perfusion study. 3. Diabetes mellitus. 4. Hypertension. 5. Dyslipidemia. 6. Thyroid disease. DISPOSITION Mrs. Fields will undergo cardiac catheterization and coronary intervention if necessary. She understands the risks and benefits and wishes to proceed. Russell Hale MD OQ/EO /6:40 PM /9:20 PM
[2017-01-25] MEDS ORDERED: ATROPINE SULFATE 1 MG/ML VIAL ONE (23:46)
[2017-01-26] VITALS (13 sets, daily range): BP systolic 108–125; BP diastolic 70–77; PULSE 52–77; RESP 18–20; TEMP 97–97.8; O2SAT 97–98
[2017-01-26] MEDS ORDERED: BACITRACIN OINT 0.9 GM PKT ONE (00:21)
[2017-01-26] MEDS ORDERED: THYROID 30 MG TAB PO SCH (06:00)
--- NOTE | 2017-01-26 06:50 | MR ---
cc: GUILLAUME CID DATE 01/25/2017 INDICATIONS Unstable angina, class III angina, intermediate probability nuclear marker perfusion study. PROCEDURE PERFORMED 1. Retrograde left heart catheterization with left ventriculography and selective coronary angiography. 2. Angioplasty and stenting of the mid-right coronary artery. 3. Moderate sedation ACCESS SITE Right femoral artery using ultrasound guidance. MEDICATIONS 1. Versed IV 2. Fentanyl IV 3. Heparin IV 4. Kengreal 5. Nitroglycerin IC 6. Brilinta 180 mg p.o. CONTRAST Omnipaque 125 cc EQUIPMENT USED A 5-Yemeni pigtail catheter, 5-Yemeni JL-4 and AR modified coronary artery catheters. 2.0 x 12 mm balloon, 3.5 x 80 mm per R-Anthony and drug-eluting stent at 12 atmospheres, postdilated with a 3.5 x 12 noncompliant balloon at 18 atmospheres. COMPLICATIONS None BLOOD LOSS Less than 10 cc METHOD OF HEMOSTASIS Angio-Seal closure. A 4-Yemeni sheath was left in the left femoral artery. RESULTS HEMODYNAMICS Heart rate 70 beats per minute. Left end-diastolic pressure of 5 mmHg. Left ventricle 130/5. Aorta 130/72/101. Left ventricular ejection fraction 65%. Wall motion normal. No mitral regurgitation. CORONARY ANGIOGRAPHY The left main coronary artery patent. The left anterior descending artery has 30% stenosis in the proximal portion and is totally occluded in the midportion distally to the first diagonal and first septal branches. The distal LAD fills by abundant [id number] collaterals. The first diagonal artery is patent. The left circumflex artery is patent. OM1 large patent. OM2 large patent. The right coronary is a large dominant vessel with 80% in the midportion. PDA patent. PLV patent. Right coronary artery, mid-right coronary stenosis, lesion length 12 mm. Pre SHANI flow III post SHANI flow III. Post stenosis zero. POST INTERVENTION ANGIOGRAPHY Excellent patency of the stented segment and no evidence of dissection, thrombosis or distal embolization. DIAGNOSIS 1. Multivessel coronary artery disease with 80% stenosis of the mid-right coronary and total occlusion of the mid left anterior descending artery with distal vessel filling by collaterals. 2. Well-preserved left ventricular systolic function. 3. Successful angioplasty and stenting of the mid-right coronary artery. DISPOSITION Ms. Fields will be monitored on telemetry after her procedures. We will continue long-term therapy with Brilinta and baby aspirin. We will continue aggressive modification of her cardiac risk factors. I will see her back for followup in our office after discharge. MD DEEPAK Fernandez/DEMETRA /8:17 PM /6:29 AM
[2017-01-26] MEDS ORDERED: ISOSORBIDE MONONITRATE 30 MG TAB PO SCH (07:00)
[2017-01-26 07:06] LABS: AUTOMATED NEUTROPHIL # 4.8 TH/MM3 (1.8-7.7); BASOPHIL % 0.2 % (0.0-2.0); EOSINOPHIL % 0.4 % (0.0-4.0); HEMATOCRIT 36.9 % (35.0-46.0); HEMO FLAGS DIFF FINAL; LYMPH % 24.3 % (9.0-44.0); LYMPHOCYTE # 1.9 TH/MM3 (1.0-4.8); MEAN CORPUSCULAR HEMOGLOBIN 31.2 PG (27.0-34.0); MEAN CORPUSCULAR HGB CONC 33.9 % (32.0-36.0); MONO % 12.1 % (0.0-8.0); PLATELET COUNT 232 TH/MM3 (150-450); RED BLOOD COUNT 4.02 MIL/MM3 (4.00-5.30); WHITE BLOOD COUNT 7.7 TH/MM3 (4.0-11.0)
[2017-01-26 07:11] LABS: BICARBONATE 24.5 MEQ/L (21.0-32.0); POTASSIUM 3.7 MEQ/L (3.5-5.1)
[2017-01-26 07:15] LABS: HDL CHOLESTEROL 48.4 MG/DL (40.0-60.0)
[2017-01-26] MEDS: INSULIN ASPART SUPPLEMENTAL SCALE SQ SCH ×2 (08:00→12:00)
[2017-01-26] MEDS ORDERED: TICAGRELOR 90 MG TAB PO SCH (09:00)
[2017-01-26] MEDS: SODIUM CHLORIDE 0.9% FLUSH 10 ML FLUSH IV FLUSH SCH (09:00)
[2017-01-26] MEDS ORDERED: ASPIRIN 81 MG CHEW TAB PO SCH (09:00)
[2017-01-26] MEDS: METOPROLOL TARTRATE 25 MG TAB PO SCH (09:34)
[2017-01-26] MEDS: FAMOTIDINE 20 MG TAB PO SCH (09:34)
[2017-01-26] MEDS ORDERED: BRIL90TA PO (10:53)
[2017-01-26] MEDS ORDERED: ISOS30TA3 PO (10:53)
[2017-01-26] MEDS ORDERED: METO25TA3 PO (10:53)
[2017-01-26] MEDS ORDERED: ASPI81CH25 PO (10:53)
[2017-01-26] MEDS ORDERED: PRAV10TA PO (10:53)
--- NOTE | 2017-01-26 12:02 | HHI.PR ---
Subjective Remarks Follow up for unstable angina status post cardiac catheter with stent placements. Patient is currently doing well. No chest pain, shortness of breath, fever or chills. Objective Vitals Vital Signs Date Time Temp Pulse Resp B/P (MAP) Pulse Ox O2 Delivery O2 Flow Rate FiO2 01/26/17 06:08 52 01/26/17 05:00 74 01/26/17 04:00 68 01/26/17 03:00 74 01/26/17 03:00 97.6 77 18 125/71 (89) 97 Arterial Line 01/26/17 02:00 65 01/26/17 01:00 71 01/26/17 00:00 74 01/25/17 23:00 69 01/25/17 23:00 97.6 60 18 139/66 (90) 99 144/66 (92) 01/25/17 22:00 74 01/25/17 21:15 97.8 75 18 148/90 (109) 99 156/72 (100) 01/25/17 21:00 90 01/25/17 20:47 75 01/25/17 16:00 98.0 92 18 162/92 (115) 99 I/O 01/25/17 01/25/17 01/25/17 01/26/17 01/26/17 01/26/17 07:00 15:00 23:00 07:00 15:00 23:00 Intake Total 0 ml 480 ml Output Total 600 ml Balance 0 ml -120 ml Intake Oral 0 ml 480 ml Output Urine Total 600 ml # Voids 8 # Bowel Movements 0 Result Diagram: 01/26/17 0457 01/26/17 0457 Imaging Last Impressions Myocardial Perfusion Scan Nuc Med 01/25/17 0000 Signed Impressions: Service Date/Time: Wednesday, January 25, 2017 11:42 - CONCLUSION: 1. Small area of mild reversibility of the anterior wall towards the apex suggesting ischemia. 2. Normal ejection fraction.. RISK CATEGORY: Low (<1%% Annual Mortality Rate) Pastor Patterson MD Lower Extremity Ultrasound 01/25/17 0000 Signed Impressions: Service Date/Time: Wednesday, January 25, 2017 13:30 - CONCLUSION: 1. No sonographic evidence for left lower extremity DVT. Shemar Valentin MD Chest X-Ray 01/24/17 4394 Signed Impressions: Service Date/Time: Tuesday, January 24, 2017 23:15 - CONCLUSION: Very mild left base consolidation. Yogi Wilson MD Objective Remarks GENERAL: Alert, oriented 3, NAD. SKIN: Warm and dry. HEAD: Normocephalic. EYES: No scleral icterus. No injection or drainage. NECK: Supple, trachea midline. No JVD or lymphadenopathy. CARDIOVASCULAR: Regular rate and rhythm without murmurs, gallops, or rubs. RESPIRATORY: Breath sounds equal bilaterally. No accessory muscle use. GASTROINTESTINAL: Abdomen soft, non-tender, nondistended. MUSCULOSKELETAL: No cyanosis, or edema. BACK: Nontender without obvious deformity. No CVA tenderness. Procedures Cardiac catheterization 01/25/2017 1. Multivessel coronary artery disease with 80% stenosis of the mid-right coronary and total occlusion of the mid left anterior descending artery with distal vessel filling by collaterals. 2. Well-preserved left ventricular systolic function. 3. Successful angioplasty and stenting of the mid-right coronary artery. A/P Problem List: (1) Unstable angina ICD Code: I20.0 - Unstable angina (2) Multi-vessel coronary artery stenosis ICD Code: I25.10 - Atherosclerotic heart disease of [place] coronary artery without angina pectoris (3) Hypertensive urgency ICD Code: I16.0 - Hypertensive urgency (4) subjective ear pain and throat swelling (5) Back pain ICD Code: M54.9 - Dorsalgia, unspecified (6) Swelling of left lower extremity ICD Code: M79.89 - Other specified soft tissue disorders (7) Atelectasis of left lung ICD Code: J98.11 - Atelectasis Assessment and Plan Ms. Fields is a pleasant 56-year-old female with a history of hypertension, hyperlipidemia, diabetes lightest type II who presented to the emergency department on 01/24/2017 with right-sided chest pain radiating to her right arm. A nuclear perfusion study revealed anteroseptal reversible defect consistent with ischemia. Patient was subsequently evaluated by cardiology and underwent cardiac catheterization on 01/25/2017. A drug-eluting stent was placed to the mid RCA. - Multivessel coronary artery disease - Unstable angina - 80% stenosis of the mid RCA and total occlusion of mid LAD with distal filling by collaterals - Drug-eluting stent placed to the mid RCA - Continue aspirin 81 mg daily, Ticagrelor 90 mg twice a day - Also, continue metoprolol 25 mg twice a day, pravastatin 10 mg daily at bedtime, isosorbide mononitrate 30 mg daily. - Discussed with Dr. Hale - he will try to switch patient to Lipitor gradually in the outpatient setting. - There is some questionable intolerance issue with Lipitor. - Hypertension - Hyperlipidemia - Continue beta toma and statin. If needed, consider calcium channel blockers such as amlodipine or nifedipine for blood pressure. - Diabetes mellitus - Hypothyroidism - Continue metformin and acarbose - Continue [place] Thyroid Full code. Ambulation. Discharge patient to home Condition on discharge: Improved Diabetic Diet as tolerated Ad Kasia activity Rx written: * Aspirin 81 mg daily * Ticagrelor 90 mg twice a day * Isosorbide mononitrate 30 mg daily * Metoprolol tartrate 25 mg twice a day * Pravastatin 10 mg daily at bedtime Follow-up with primary care physician when necessary, cardiology on Monday, 01/30. Yajaira Cantor DO Jan 26, 2017 12:02 pm
--- NOTE | 2017-01-26 14:05 | PD.CARD.PN ---
Subjective Subjective Remarks No angina or CHF symptoms, groins stable Objective Medications Administered Medications Medications (Trade) Dose Ordered Sig/Randy Route PRN Reason Start Time Stop Time Status Last Admin Dose Admin Sodium Chloride (NS Flush) 2 ml BID IV FLUSH 01/25/17 09:00 01/26/17 09:00 Ondansetron HCl (Zofran Inj) 4 mg Q6H PRN IV PUSH NAUSEA 01/25/17 10:30 01/25/17 23:38 Famotidine (Pepcid) 20 mg BID PO 01/25/17 10:30 01/26/17 09:34 Heparin Sodium (Porcine) (Heparin Inj) 5,000 units DAILY@1100,2300 SQ 01/25/17 11:45 Future Hold 01/25/17 14:08 Thyroid ([place] Thyroid) 30 mg SuTuThFr@0600 PO 01/26/17 06:00 01/26/17 05:48 Thyroid ([place] Thyroid) 60 mg MoWeSa@0600 PO 01/25/17 16:00 01/25/17 16:08 Acetaminophen (Tylenol) 325 mg Q4H PRN PO PAIN SCALE 1 TO 5 01/25/17 21:00 01/26/17 03:19 Aspirin (Aspirin Chew) 81 mg DAILY PO 01/26/17 09:00 01/26/17 09:34 Ticagrelor (Brilinta) 90 mg BID PO 01/26/17 09:00 01/26/17 09:34 Metoprolol Tartrate (Lopressor) 25 mg BID PO 01/25/17 21:00 01/26/17 09:34 Pravastatin Sodium (Pravachol) 10 mg HS PO 01/25/17 21:00 01/25/17 21:30 Isosorbide Mononitrate (Imdur) 30 mg DAILY@07 PO 01/26/17 07:00 01/26/17 05:48 Vital Signs / I&O Vital Signs Date Time Temp Pulse Resp B/P (MAP) Pulse Ox O2 Delivery O2 Flow Rate FiO2 01/26/17 06:08 52 01/26/17 05:00 74 01/26/17 04:00 68 01/26/17 03:00 74 01/26/17 03:00 97.6 77 18 125/71 (89) 97 Arterial Line 01/26/17 02:00 65 01/26/17 01:00 71 01/26/17 00:00 74 01/25/17 23:00 69 01/25/17 23:00 97.6 60 18 139/66 (90) 99 144/66 (92) 01/25/17 22:00 74 01/25/17 21:15 97.8 75 18 148/90 (109) 99 156/72 (100) 01/25/17 21:00 90 01/25/17 20:47 75 01/25/17 16:00 98.0 92 18 162/92 (115) 99 I/O 01/25/17 01/25/17 01/25/17 01/26/17 01/26/17 01/26/17 07:00 15:00 23:00 07:00 15:00 23:00 Intake Total 0 ml 480 ml Output Total 600 ml Balance 0 ml -120 ml Intake Oral 0 ml 480 ml Output Urine Total 600 ml # Voids 8 # Bowel Movements 0 Physical Exam GENERAL: In NAD SKIN: Warm and dry. HEAD: Normocephalic. EYES: No scleral icterus. No injection or drainage. NECK: Supple, trachea midline. No JVD or lymphadenopathy. CARDIOVASCULAR: Regular rate and rhythm without murmurs, gallops, or rubs. RESPIRATORY: Breath sounds equal bilaterally. No accessory muscle use. GASTROINTESTINAL: Abdomen soft, non-tender, nondistended. MUSCULOSKELETAL: No cyanosis, or edema. both groins stable Laboratory Laboratory Tests Test 01/26/17 04:57 White Blood Count 7.7 TH/MM3 Red Blood Count 4.02 MIL/MM3 Hemoglobin 12.5 GM/DL Hematocrit 36.9 % Mean Corpuscular Volume 92.0 FL Mean Corpuscular Hemoglobin 31.2 PG Mean Corpuscular Hemoglobin Concent 33.9 % Red Cell Distribution Width 13.0 % Platelet Count 232 TH/MM3 Mean Platelet Volume 9.1 FL Neutrophils (%) (Auto) 63.0 % Lymphocytes (%) (Auto) 24.3 % Monocytes (%) (Auto) 12.1 % Eosinophils (%) (Auto) 0.4 % Basophils (%) (Auto) 0.2 % Neutrophils # (Auto) 4.8 TH/MM3 Lymphocytes # (Auto) 1.9 TH/MM3 Monocytes # (Auto) 0.9 TH/MM3 Eosinophils # (Auto) 0.0 TH/MM3 Basophils # (Auto) 0.0 TH/MM3 CBC Comment DIFF FINAL Differential Comment Blood Urea Nitrogen 8 MG/DL Creatinine 0.40 MG/DL Random Glucose 86 MG/DL Calcium Level 8.2 MG/DL Sodium Level 140 MEQ/L Potassium Level 3.7 MEQ/L Chloride Level 109 MEQ/L Carbon Dioxide Level 24.5 MEQ/L Anion Gap 7 MEQ/L Estimat Glomerular Filtration Rate 166 ML/MIN Total Creatine Kinase 28 U/L Triglycerides Level 71 MG/DL Cholesterol Level 184 MG/DL LDL Cholesterol 121 MG/DL HDL Cholesterol 48.4 MG/DL Cholesterol/HDL Ratio 3.80 RATIO Assessment and Plan Problem List: (1) Stented coronary artery ICD Codes: Z95.5 - Presence of coronary angioplasty implant and graft (2) Multi-vessel coronary artery stenosis ICD Codes: I25.10 - Atherosclerotic heart disease of [place] coronary artery without angina pectoris (3) Unstable angina ICD Codes: I20.0 - Unstable angina Assessment and Plan Continue Brilinta and baby ASA. Beta toma, nitrates, low dose pravastatin. Groins stable. No angina. DC home. Will schedule f/u in our office Mon. D/w pt and . Russell Hale MD Jan 26, 2017 14:05
--- NOTE | 2017-01-26 15:03 | EKG ---
Date Performed: 01/25/2017 Time Performed: 22:32:50 PTAGE: 56 years EKG: Sinus rhythm Possible anterior infarct - age undetermined Low QRS voltages in precordial leads Abnormal ECG PREVIOUS TRACING : 01/25/2017 13.18 Compared to prior tracing no significant change DOCTOR: Malcom Garcia Interpretating Date/Time 01/26/2017 15:01:28
--- NOTE | 2017-01-26 15:03 | EKG ---
Date Performed: 01/26/2017 Time Performed: 05:11:52 PTAGE: 56 years EKG: Sinus rhythm Anterior infarct - age undetermined Low QRS voltages in precordial leads Abnormal ECG PREVIOUS TRACING : 01/25/2017 22.32 Compared to prior tracing no significant change DOCTOR: Malcom Garcia Interpretating Date/Time 01/26/2017 15:01:43
== END 2017-01-26 16:08 | disposition home or self-care (01) ==
LOC: PHED 21:47 → PHEDA 01-25 01:07 → PHEDH 01-25 05:07 → PH3A 01-25 08:20 → HCIS 01-25 20:25
PROVIDERS: ADMIT Hospitalist; ATTEND Hospitalist
DX: I25.110 Atherosclerotic heart disease of native coronary artery with unstable angina pectoris (principal); I25.82 Chronic total occlusion of coronary artery; I16.0 Hypertensive urgency; E11.9 Type 2 diabetes mellitus without complications; K31.84 Gastroparesis; E78.5 Hyperlipidemia, unspecified; E07.9 Disorder of thyroid, unspecified; K44.9 Diaphragmatic hernia without obstruction or gangrene; J98.11 Atelectasis; M25.475 Effusion, left foot; I10 Essential (primary) hypertension; E04.1 Nontoxic single thyroid nodule; M10.9 Gout, unspecified; J45.909 Unspecified asthma, uncomplicated; M85.80 Other specified disorders of bone density and structure, unspecified site; R06.02 Shortness of breath; R20.2 Paresthesia of skin; R94.31 Abnormal electrocardiogram [ECG] [EKG]
CPT/HCPCS: 71010; 78452; 80048; 80053; 80061; 82550; 82948; 83690; 83735; 84132; 84484; 85002; 85025; 85379; 85610; 85730; 92928; 93005; 93017; 93458; 93971; 94150; 96372; 96374; 96375; A9502; C1725; C1760; C1769; C1874; C1887; C1893; C9460; G0269; G0378; G8987-GP; G8988-GP; J0461; J1644; J1885; J2250; J2405; J2785; J3010; J7040; Q9967

== ENCOUNTER 2017-09-13 13:35 | Emergency (ER) | payer OTHER ==
[~2017-09-13] VITALS: Ht 157.5 cm; Wt 61.0 kg
[~2017-09-13 13:35] MED LIST changes: +ACAR50TA PO; +ARMO30TA PO; +ARMO60TA PO; +ASPI81CH25 PO; -BIOTCAP PO; +BRIL90TA PO; -CETI10 PO; -CHOL1CAP14 PO; -CINN500C7 PO; -CREON24 PO; -EVENCAP2 PO; -FOLI400T30 PO; -GLUCTAB PO; +ISOS30TA3 PO; -LUTE6TAB PO; +METF500T PO; +METO25TA3 PO; -MIRA33502 PO; -MULT1TAB PO; +PANC3600 PO; +PRAV10TA PO; -PREC50TA PO; -SM A81CH CHEW; -THYR15 PO; -VITA-83 PO; -VITA10002 PO; -VITATAB11 PO; -[UNRECOGNIZED DRUG - OTHER] PO
[2017-09-13 13:37] VITALS: BP 111/60; PULSE 68; RESP 20; O2SAT 93
[2017-09-13] MEDS ORDERED: SODIUM CHLORID 0.9% 500 ML INJ 500 ML IV ONE (13:45)
--- NOTE | 2017-09-13 13:48 | PD ---
HPI Chief Complaint: Syncope/Near-Syncope Time Seen by Provider: 13:43 Travel History International Travel<30 days: No Contact w/Intl Traveler<30days: No Traveled to known affect area: No History of Present Illness HPI This 57-year-old female is brought by ambulance after having a syncopal episode. She has a history of diabetes. She has had a stent in January for coronary artery disease. He has had some sinus congestion the last couple of days. Her and had an upper respiratory infection over the weekend. She had gone camping over the weekend and today was congested in the morning. She took a cough and cold medicine this morning. She went to the was in a crowded exercise room. She was not exercising but she got hot and feeling flushed and lightheaded. She ended up having a syncopal episode. There is no report of incontinence tongue biting. She has not had syncope before. She is on metoprolol for high blood pressure. Paramedics were called and the patient had a recurrence of her lightheadedness so decided to come for evaluation. He had not eaten much prior to going to the [facility] this morning [facility] Past Medical History Asthma: Yes Anxiety: Yes Cardiovascular Problems: Yes High Cholesterol: Yes Chest Pain: Yes (W/ THIS ADMISSION ) Diabetes: Yes (TYPE 2) Patient Takes Glucophage: No Diminished Hearing: No Endocrine: No Gastrointestinal Disorders: Yes (GASTROPARESIS ) Gout: Yes Genitourinary: Yes (STRESS INCONTINENT ) Hepatitis: No Hiatal Hernia: Yes Hypertension: Yes (NO MEDS) Immune Disorder: No Implanted Vascular Access Dvce: Yes Musculoskeletal: Yes Neurologic: Yes ("BALANCE ISSUES") Psychiatric: Yes Reproductive: No Respiratory: Yes Thyroid Disease: Yes (HYPOTHROIDISM) Ulcer: Yes ?: Not : 0 Para: 0 Past Surgical History Abdominal Surgery: Yes (TAD) Body Medical Devices: BREAST IMPLANTS Cardiac Surgery: No Cholecystectomy: Yes Ear Surgery: No Endocrine Surgery: No Eye Surgery: No Genitourinary Surgery: Yes Gynecologic Surgery: Yes (CERVICAL CA CELLS LASER REMOVAL ) Oral Surgery: Yes (WISDOM TEETH REMOVAL ) Thoracic Surgery: No Other Surgery: Yes (BREAST IMPLANTS, ATYPICAL BACK AND CHEST, NEVUS W/MILD TO MODERATE ATYPIA) Social History Alcohol Use: No Tobacco Use: No Substance Use: No Allergies-Medications (Allergen,Severity, Reaction): Coded Allergies: Sulfa (Sulfonamide Antibiotics) (Unverified Allergy, Severe, RESPIRATORY, HIVES, 09/13/17) amoxicillin (Unverified Allergy, Severe, HIVES, 09/13/17) betamethasone (Unverified Allergy, Severe, ANAPHYLAXIS, 09/13/17) bethanechol (Unverified Allergy, Severe, hives, 09/13/17) cephalexin (Unverified Allergy, Severe, HIVES, 09/13/17) norma (Unverified Allergy, Severe, ANAPHYLAXIS, 09/13/17) pecan nut (Unverified Allergy, Severe, UNKNOWN, 09/13/17) penicillin G (Unverified Allergy, Severe, HIVES, 09/13/17) sulfamethoxazole (Unverified Allergy, Severe, HIVES, 09/13/17) trimethoprim (Unverified Allergy, Severe, HIVES, 09/13/17) cat dander (Unverified Allergy, Intermediate, RESPIRATORY PROBLEMS, ) mold (Unverified Allergy, Intermediate, RESPIRATORY PROBLEMS, 09/13/17) pesticide (Unverified Allergy, Intermediate, ITCHING, RESP PROBLEMS, ) triamterene (Unverified Adverse Reaction, Severe, LIVER TEST ABNORMAL, ) dog dander (Unverified Adverse Reaction, Intermediate, RESPIRATORY PROBLEMS, 09/13/17) grass pollen (Unverified Adverse Reaction, Intermediate, RESPIRATORY PROBLEMS, 09/13/17) storax (Unverified Adverse Reaction, Intermediate, RESPIRATORY PROBLEMS, ) tree and shrub pollen (Unverified Adverse Reaction, Intermediate, RESPIRATORY PROBLEMS, 09/13/17) atorvastatin (Unverified Adverse Reaction, Unknown, UNKNOWN REACTION, 09/13) Reported Meds & Prescriptions Reported Meds & Active Scripts Active Aspirin Low Strength (Aspirin) 81 Mg Chew 81 Mg PO DAILY Metoprolol Tartrate 25 Mg Tab 25 Mg PO BID Isosorbide Mononitrate ER (Isosorbide Mononitrate) 30 Mg Brandi 30 Mg PO DAILY@07 Pravastatin 10 Mg Tab 10 Mg PO HS Brilinta (Ticagrelor) 90 Mg Tab 90 Mg PO BID Reported [place] Thyroid (Thyroid) 30 Mg Tab 30 Mg PO TUE,THURS,FRI,SUN [place] Thyroid (Thyroid) 60 Mg Tab 60 Mg PO MON,WED,SAT Creon (Pancrelipase) 36,000-114,000-180,000 Units Cap 1 Cap PO TIDPC Metformin (Metformin HCl) 500 Mg Tab 500 Mg PO QID With a meal Acarbose 50 Mg Tab 50 Mg PO QID Review of Systems Except as stated in HPI: all other systems reviewed are Neg General / Constitutional: No: Fever, Chills Eyes: No: Diploplia HENT: Positive: Lightheadedness, No: Headaches Cardiovascular: No: Chest Pain or Discomfort, Palpitations Respiratory: No: Cough, Shortness of Breath Gastrointestinal: No: Vomiting, Diarrhea Genitourinary: No: Urgency, Frequency Musculoskeletal: No: Myalgias, Arthralgias Neurologic: Positive: Weakness, No: Focal Abnormalities Endocrine: No: Cold Intolerance Hematologic/Lymphatic: No: Easy Bruising Physical Exam Narrative GENERAL: Well-developed female SKIN: Focused skin assessment warm/dry. HEAD: Atraumatic. Normocephalic. EYES: Pupils equal and round. No scleral icterus. No injection or drainage. ENT: No nasal bleeding or discharge. Mucous membranes pink and moist. NECK: Trachea midline. No JVD. CARDIOVASCULAR: Regular rate and rhythm. No murmur appreciated. RESPIRATORY: No accessory muscle use. Clear to auscultation. Breath sounds equal bilaterally. GASTROINTESTINAL: Abdomen soft, non-tender, nondistended. Hepatic and splenic margins not palpable. MUSCULOSKELETAL: No obvious deformities. No clubbing. No cyanosis. No edema. NEUROLOGICAL: Awake and alert. No obvious cranial nerve deficits. Motor grossly within normal limits. Normal speech. PSYCHIATRIC: Appropriate mood and affect; insight and judgment normal. Data Data Last Documented VS Vital Signs Date Time Temp Pulse Resp B/P (MAP) Pulse Ox O2 Delivery O2 Flow Rate FiO2 09/13/17 14:11 98.6 78 16 120/64 (82) 96 Room Air Orders Orders Electrocardiogram (09/13/17 13:43) Complete Blood Count With Diff (09/13/17 13:43) Comprehensive Metabolic Panel (09/13/17 13:43) Troponin I (09/13/17 13:43) Urinalysis - C+S If Indicated (09/13/17 13:43) Sodium Chlorid 0.9% 500 Ml Inj (Ns 500 M (09/13/17 13:45) Labs Laboratory Tests Test 09/13/17 14:05 White Blood Count 9.9 TH/MM3 Red Blood Count 4.24 MIL/MM3 Hemoglobin 13.4 GM/DL Hematocrit 38.4 % Mean Corpuscular Volume 90.6 FL Mean Corpuscular Hemoglobin 31.5 PG Mean Corpuscular Hemoglobin Concent 34.8 % Red Cell Distribution Width 12.6 % Platelet Count 234 TH/MM3 Mean Platelet Volume 8.8 FL Neutrophils (%) (Auto) 74.8 % Lymphocytes (%) (Auto) 12.2 % Monocytes (%) (Auto) 11.4 % Eosinophils (%) (Auto) 0.6 % Basophils (%) (Auto) 1.0 % Neutrophils # (Auto) 7.4 TH/MM3 Lymphocytes # (Auto) 1.2 TH/MM3 Monocytes # (Auto) 1.1 TH/MM3 Eosinophils # (Auto) 0.1 TH/MM3 Basophils # (Auto) 0.1 TH/MM3 CBC Comment DIFF FINAL Differential Comment Blood Urea Nitrogen 14 MG/DL Creatinine 0.84 MG/DL Random Glucose 113 MG/DL Total Protein 6.6 GM/DL Albumin 3.2 GM/DL Calcium Level 8.4 MG/DL Alkaline Phosphatase 70 U/L Aspartate Amino Transf (AST/SGOT) 26 U/L Alanine Aminotransferase (ALT/SGPT) 32 U/L Total Bilirubin 0.5 MG/DL Sodium Level 140 MEQ/L Potassium Level 3.8 MEQ/L Chloride Level 108 MEQ/L Carbon Dioxide Level 25.7 MEQ/L Anion Gap 6 MEQ/L Estimat Glomerular Filtration Rate 70 ML/MIN Troponin I LESS THAN 0.02 NG/ML [facility] Medical Decision Making Medical Screen Exam Complete: Yes Emergency Medical Condition: Yes Medical Record Reviewed: Yes Differential Diagnosis Differential includes dysrhythmia, vasovagal syncope, vasovagal near syncope Narrative Course EKG shows no dysrhythmia. This patient had symptoms of vagal syncope and I believe this was VASO vagal near syncope Diagnosis Primary Impression: Vasovagal near syncope Disposition: 01 DISCHARGE HOME Condition: Stable John Paul Corrales MD September 13, 2017 13:47
[2017-09-13 14:11] VITALS: BP 120/64; PULSE 78; RESP 16; TEMP 98.6; O2SAT 96
[2017-09-13 14:15] LABS: AUTOMATED NEUTROPHIL # 7.4 TH/MM3 (1.8-7.7); BASOPHIL # 0.1 TH/MM3 (0-0.2); EOSINOPHIL # 0.1 TH/MM3 (0-0.4); EOSINOPHIL % 0.6 % (0.0-4.0); HEMATOCRIT 38.4 % (35.0-46.0); HEMOGLOBIN 13.4 GM/DL (11.6-15.3); LYMPH % 12.2 % (9.0-44.0); LYMPHOCYTE # 1.2 TH/MM3 (1.0-4.8); MEAN CELL VOLUME 90.6 FL (80.0-100.0); MEAN CORPUSCULAR HEMOGLOBIN 31.5 PG (27.0-34.0); MEAN CORPUSCULAR HGB CONC 34.8 % (32.0-36.0); MEAN PLATELET VOLUME 8.8 FL (7.0-11.0); MONO % 11.4 % (0.0-8.0); MONOCYTE # 1.1 TH/MM3 (0-0.9); NEUT % 74.8 % (16.0-70.0); PLATELET COUNT 234 TH/MM3 (150-450); RED BLOOD COUNT 4.24 MIL/MM3 (4.00-5.30); RED CELL DISTRIBUTION WIDTH 12.6 % (11.6-17.2); WHITE BLOOD COUNT 9.9 TH/MM3 (4.0-11.0)
[2017-09-13 14:32] LABS: CHLORIDE 108 MEQ/L (98-107); SODIUM (NA) 140 MEQ/L (136-145)
[2017-09-13 14:35] LABS: ALBUMIN 3.2 GM/DL (3.4-5.0); BICARBONATE 25.7 MEQ/L (21.0-32.0); CALCIUM 8.4 MG/DL (8.5-10.1); GLUCOSE,RANDOM 113 MG/DL (74-106)
[2017-09-13 14:36] LABS: BLOOD UREA NITROGEN 14 MG/DL (7-18)
[2017-09-13 14:38] LABS: ALT (GPT) 32 U/L (10-53); AST (GOT) 26 U/L (15-37)
[2017-09-13 14:39] LABS: CREATININE 0.84 MG/DL (0.50-1.00); GLOMERULAR FILTRATION RATE 70 ML/MIN (>89)
[2017-09-13 14:40] LABS: TOTAL BILIRUBIN ADULT 0.5 MG/DL (0.2-1.0); TOTAL PROTEIN 6.6 GM/DL (6.4-8.2)
[2017-09-13 14:41] LABS: ALKALINE PHOSPHATASE 70 U/L (45-117)
[2017-09-13 14:43] LABS: TROPONIN I LESS THAN 0.02 NG/ML (0.02-0.05)
[2017-09-13 15:21] VITALS: BP 119/65; PULSE 72; RESP 18; O2SAT 95
[2017-09-13 15:23] LABS: BILIRUBIN, URINE NEG (NEG); BLOOD, URINE NEG (NEG); GLUCOSE,URINE NEG (NEG); KETONE, URINE NEG (NEG); NITRITE,URINE NEG (NEG); URINE COLOR YELLOW (YELLW/STRAW); URINE LEUKOCYTE ESTERASE NEG (NEG)
[2017-09-13 15:28] LABS: AMORPHOUS SEDIMENT, URINE MOD; SQUAMOUS EPITHELIAL CELL URINE > 8 /hpf (0-5); WBC, URINE 0-2 /hpf (0-5)
[2017-09-13 15:39] VITALS: BP 115/61; PULSE 76; RESP 16; O2SAT 97
--- NOTE | 2017-09-15 08:28 | EKG ---
Date Performed: 09/13/2017 Time Performed: 13:58:22 PTAGE: 57 years EKG: Sinus rhythm POSSIBLE LEFT ATRIAL ENLARGEMENT LOW QRS VOLTAGE IN PRECORDIAL LEADS INCOMPLETE RIGHT BUNDLE BRANCH BLOCK NONSPECIFIC T-WAVE ABNORMALITY BORDERLINE ECG PREVIOUS TRACING : 01/26/2017 05.11 DOCTOR: Elizabeth Casiano Interpretating Date/Time 09/15/2017 08:18:20
== END 2017-09-13 16:07 | disposition home or self-care (01) ==
LOC: PHED 13:35
DX: R55 Syncope and collapse (principal); R94.31 Abnormal electrocardiogram [ECG] [EKG]; I10 Essential (primary) hypertension; E78.00 Pure hypercholesterolemia, unspecified; E11.9 Type 2 diabetes mellitus without complications; Z88.2 Allergy status to sulfonamides; Z88.0 Allergy status to penicillin; Z88.8 Allergy status to other drugs, medicaments and biological substances; Z79.84 Long term (current) use of oral hypoglycemic drugs; Z79.899 Other long term (current) drug therapy
CPT/HCPCS: 80053; 81001; 84484; 85025; 93005; 96360; 99284; J7040